=== PATIENT | female | born 1975 | race Caucasian/White ===

== ENCOUNTER → 2025-01-18 | Outpatient (CLI) | payer MEDICARE ==
[~2025-01-18] MED LIST: ARIPIPRAZOLE2 MG PO; ELINEST-28 TAB1 EACH PO; FERROUS SULFAT325 MG PO; LEVOTHYROXINE112 MC1 PO; OMEPRAZOLE MAGN20 MG PO; SIMVASTATIN40 MG PO; VITAMIN D3125 MC1 PO; ZOLOFT100 MG PO
== END | disposition home or self-care (01) ==
LOC: RAD 12:56
PROVIDERS: ATTEND Physician Assistant
DX: Q21.0 Ventricular septal defect (principal)

== ENCOUNTER → 2025-05-06 | Outpatient (CLI) | payer MEDICARE ==
[2025-05-06 16:36] LABS: BUN 13 mg/dl (9-23)
== END | disposition home or self-care (01) ==
LOC: LAB 15:04
PROVIDERS: ATTEND Internal Medicine Nephrology
DX: N17.9 Acute kidney failure, unspecified (principal)

== ENCOUNTER 2025-07-24 11:06 | Emergency (ER) | payer MEDICARE ==
[~2025-07-24] VITALS: Ht 147.3 cm; Wt 76.2 kg
[2025-07-24] MEDS ORDERED: AMOX-CLAV 875-1 EACH PO (11:41)
[2025-07-24] MEDS ORDERED: TRAMADOL HCL50 MG PO (11:41)
[2025-07-24] MEDS ORDERED: FLUCONAZOLE100 MG PO (11:56)
== END 2025-07-24 11:41 | disposition home or self-care (01) ==
LOC: ED 11:06
DX: L03.111 Cellulitis of right axilla (principal); H66.91 Otitis media, unspecified, right ear

== ENCOUNTER 2025-07-27 13:29 | Emergency (ER) | payer MEDICARE ==
[~2025-07-27] VITALS: Ht 147.3 cm; Wt 76.2 kg
[~2025-07-27 13:29] MED LIST changes: +AMOX-CLAV 875-1 EACH PO; +FLUCONAZOLE100 MG PO; +TRAMADOL HCL50 MG PO
[2025-07-27] MEDS ORDERED: SODIUM CHLORIDE 0.9% 1,000 ML IV ONE (14:00)
[2025-07-27 14:10] LABS: BASO # 0.0 10*3/uL (0.0-0.1); BASO % 0.6 % (0.0-1.0); EOS # 0.1 10*3/uL (0.0-0.4); EOS % 2.0 % (1.0-4.0); MEAN CELL VOLUME 86.9 fl (81.0-99.0); MEAN CORPUSCULAR HGB 27.2 pg (27.0-31.0); MEAN PLATELET VOLUME 10.8 fl (9.6-12.3); MONO # 0.4 10*3/uL (0.1-1.0); MONO % 7.0 % (3.0-9.0); NEUT # 4.0 10*3/uL (2.3-7.9); NEUT % 79.6 % (47.0-73.0); NUCLEATED RED BLOOD CELL 0.0 % (0.0-0.0); NUCLEATED RED BLOOD CELL 0.0 10*3/uL (0.0-0.0); PLATELET COUNT AUTOMATED 141 10*3/uL (130-400); RED CELL DISTRI WIDTH 15.0 % (0-14.5)
[2025-07-27 14:33] LABS: BUN 12 mg/dl (9-23)
[2025-07-27 14:38] LABS: BILIRUBIN Negative (Negative); BLOOD Negative (Negative); CLARITY Clear (Clear); COLOR Yellow (Yellow); KETONE Negative (Negative); LEUKO ESTERASE 1+ (Negative); NITRITE Negative (Negative); PH 8.0 (4.5-8.0); SPECIFIC GRAVITY 1.020 (1.001-1.030); UROBILINOGEN 0.2 E.U./dl (0.0-1.0)
[2025-07-27 14:46] LABS: BACTERIA 1+
[2025-07-27] MEDS ORDERED: MEDI-MECLIZINE25 MG PO (15:35)
[2025-07-27] MEDS ORDERED: SEPTDS PO (15:35)
== END 2025-07-27 15:40 | disposition home or self-care (01) ==
LOC: ED 13:29
PROVIDERS: Nurse Practitioner Family
DX: H66.91 Otitis media, unspecified, right ear (principal); R42 Dizziness and giddiness; N30.00 Acute cystitis without hematuria